=== PATIENT | female | born 1995 | race Caucasian/White ===

== ENCOUNTER 2018-01-25 13:50 | Emergency (ER) | payer BC, MEDICAID ==
[2018-01-25 14:23] LABS: Bilirubin Negative (Negative); Blood, Urine Negative (Negative); Clarity CLEAR (Clear); Glucose, Urine (Dipstick) Negative (Negative); Leukocyte Negative (Negative); Nitrite Negative (Negative); Protein, Urine (Dipstick) Negative (Neg-Trace); Urobilinogen 0.2 mg/dL (0.2-1.0); pH, Urine 6.5 (5.0-9.0)
[2018-01-25 14:24] LABS: Specific Gravity, Urine 1.003 (1.002-1.036)
[2018-01-25 14:25] LABS: Pregnancy Test - Urine (BHCG) Negative (Negative); Pregu Control Background? CLEAR/WHITE (CLR/WHITE); Pregu Control Bar Appear? YES (CONTROL BAR); Specific Gravity 1.003 (1.002-1.036)
== END 2018-01-25 15:05 | disposition home or self-care (01) ==
LOC: ERS 13:50
DX: N61.0 Mastitis without abscess (principal); F32.9 Major depressive disorder, single episode, unspecified
CPT/HCPCS: 81003; 81025; 99283

== ENCOUNTER 2019-09-20 19:07 | Emergency (ER) | payer MEDICAID, SELFPAY ==
[2019-09-20 19:52] LABS: #Basophils 0.1 thou/uL (0.0-0.2); #Monocytes 1.1 thou/uL (0.11-0.59); #Neutrophils 7.2 thou/uL (1.40-6.50); %Basophils 0.6 % (0.0-1.0); %Eosinophils 0.2 % (0.0-10.0); %Lymphocytes 19.2 % (21.0-51.0); %Monocytes 10.7 % (0.0-10.0); %Neutrophils 69.4 % (42.0-75.0); Mean Corpuscular HGB CONC 34.6 g/dL (32.0-36.0); Mean Corpuscular Hemoglobin 32.2 pg (27.0-31.0); Mean Platelet Volume 7.8 fL (7.4-10.4); Platelet Count 271 thou/uL (130-400); RBC Distribution Width 11.5 % (11.5-14.5); Red Blood Cell (RBC) Count 4.33 mill/uL (4.20-5.40); White Blood Cell (WBC) Count 10.4 thou/uL (4.8-10.8)
[2019-09-20 20:13] LABS: ALT (SGPT) 21 U/L (8-55); AST (SGOT) 14 U/L (5-34); Albumin 4.4 g/dL (3.5-5.0); Alkaline Phosphatase 78 U/L (40-110); Anion Gap 13 mmol/L (10-20); BUN (Urea Nitrogen) 10 mg/dL (7.0-18.7); Bilirubin, Total 0.4 mg/dL (0.2-1.2); Calc. Creatinine Clearance 0 mL/min (70-130); Carbon Dioxide 23 mmol/L (22-29); Chloride 106 mmol/L (98-107); Estimated GFR-MDRD 80; Globulin 3.1 g/dL (2.4-3.5); Glucose 105 mg/dL (70-105); Potassium 3.5 mmol/L (3.5-5.1); Protein, Total 7.5 g/dL (6.0-8.3); Sodium 138 mmol/L (136-145)
== END 2019-09-20 20:27 | disposition home or self-care (01) ==
LOC: ERS 19:07
DX: L02.414 Cutaneous abscess of left upper limb (principal); L03.114 Cellulitis of left upper limb; F32.9 Major depressive disorder, single episode, unspecified; Z79.899 Other long term (current) drug therapy
CPT/HCPCS: 10060; 36415; 80053; 85025

== ENCOUNTER 2019-09-21 20:54 | Emergency (ER) | payer MEDICAID ==
[2019-09-21 21:18] LABS: #Basophils 0.1 thou/uL (0.0-0.2); #Eosinphils 0.1 thou/uL (0.0-0.7); #Lymphocytes 2.6 thou/uL (1.20-3.40); #Monocytes 0.9 thou/uL (0.11-0.59); #Neutrophils 3.5 thou/uL (1.40-6.50); %Basophils 1.2 % (0.0-1.0); %Eosinophils 1.3 % (0.0-10.0); %Lymphocytes 36.3 % (21.0-51.0); %Monocytes 12.9 % (0.0-10.0); %Neutrophils 48.4 % (42.0-75.0); Hemoglobin 13.7 g/dL (12.0-16.0); Mean Corpuscular HGB CONC 32.8 g/dL (32.0-36.0); Mean Corpuscular Hemoglobin 30.6 pg (27.0-31.0); Mean Corpuscular Volume 93.4 fL (78.0-98.0); Mean Platelet Volume 7.8 fL (7.4-10.4); Platelet Count 291 thou/uL (130-400); RBC Distribution Width 11.5 % (11.5-14.5); Red Blood Cell (RBC) Count 4.48 mill/uL (4.20-5.40); White Blood Cell (WBC) Count 7.3 thou/uL (4.8-10.8)
[2019-09-21] MEDS ORDERED: Lidocaine 1% PF 5 ML VIAL ONE (23:56)
[2019-09-21] MEDS ORDERED: cefTRIAXone\\ROCEPHIN 1 GM VIAL ONE (23:56)
== END 2019-09-22 00:39 | disposition home or self-care (01) ==
LOC: ERS 20:54
DX: L03.114 Cellulitis of left upper limb (principal); F32.9 Major depressive disorder, single episode, unspecified; Z79.899 Other long term (current) drug therapy
CPT/HCPCS: 36415; 85025; 96372; 99283; J0696; J2001

== ENCOUNTER 2019-09-25 13:25 | Inpatient (IN) | payer MEDICAID, SELFPAY ==
[2019-09-25 13:59] LABS: #Basophils 0.1 thou/uL (0.0-0.2); #Eosinphils 0.1 thou/uL (0.0-0.7); #Lymphocytes 2.4 thou/uL (1.20-3.40); #Monocytes 0.5 thou/uL (0.11-0.59); %Basophils 0.9 % (0.0-1.0); %Lymphocytes 34.4 % (21.0-51.0); %Neutrophils 56.7 % (42.0-75.0); Hemoglobin 14.5 g/dL (12.0-16.0); Mean Corpuscular HGB CONC 34.3 g/dL (32.0-36.0); Mean Corpuscular Volume 93.2 fL (78.0-98.0); Mean Platelet Volume 7.5 fL (7.4-10.4); Platelet Count 349 thou/uL (130-400); RBC Distribution Width 11.5 % (11.5-14.5); Red Blood Cell (RBC) Count 4.52 mill/uL (4.20-5.40); White Blood Cell (WBC) Count 7.1 thou/uL (4.8-10.8)
[2019-09-25 14:20] LABS: ALT (SGPT) 27 U/L (8-55); AST (SGOT) 17 U/L (5-34); Albumin 4.8 g/dL (3.5-5.0); Alkaline Phosphatase 75 U/L (40-110); Anion Gap 13 mmol/L (10-20); BUN (Urea Nitrogen) 14 mg/dL (7.0-18.7); Bilirubin, Total 0.3 mg/dL (0.2-1.2); Calc. Creatinine Clearance 0 mL/min (70-130); Calcium 9.3 mg/dL (7.8-10.44); Carbon Dioxide 24 mmol/L (22-29); Chloride 106 mmol/L (98-107); Estimated GFR-MDRD 80; Globulin 3.4 g/dL (2.4-3.5); Glucose 72 mg/dL (70-105); Potassium 4.1 mmol/L (3.5-5.1); Protein, Total 8.2 g/dL (6.0-8.3); Sodium 139 mmol/L (136-145)
[2019-09-25] MEDS ORDERED: HYDROcodone/Acetaminophen 5/325 mg Tablet PO PRN (17:23)
[2019-09-25] MEDS ORDERED: Bisacodyl 10 MG SUPP PR PRN (17:23)
[2019-09-25] MEDS ORDERED: Senokot S 8.6-50 MG TAB PO PRN (17:23)
[2019-09-25] MEDS ORDERED: Ondansetron PF 4 MG/2 ML Vial IVP PRN (17:23)
--- NOTE | 2019-09-25 19:37 | HP ---
REASON FOR ADMISSION: Left forearm cellulitis, likely community-acquired Staph infection. HISTORY OF PRESENTING ILLNESS: The patient gives history of having a small pimple more than a week back. This finally opened up and purulent material was drained out. She also was dressing it with hydrogen peroxide and applying Neosporin. 24 hours after the abscess opened up a week back, the patient developed a fever of 102.6 degrees with chills and generalized weakness. She initially thought she had flu. She finally made it to emergency room on . She had a repeat incision and drainage done in the emergency room and was given prescriptions for Bactrim and Keflex. Her skin was marked and the patient was asked to come to the ER if the area of erythema increases. So, she came back on Tuesday to the ER and was given a dose of IV Rocephin. She was asked to continue the same antibiotics. The patient went to see Dr. Matos yesterday and the skin marking had in fact become even bigger and she was asked to take Bactrim Double Strength two tablets in the morning and evening along with Keflex. She also finally called Dr. Cain this morning as the patient reported that her erythema skin markings were getting enlarged and it was becoming painful. Finally, the patient presented here and is being hospitalized. PAST MEDICAL AND SURGICAL HISTORY: Tonsillectomy, depression. CURRENT MEDICATIONS: Zoloft 100 mg p.o. daily. ALLERGIES: ALLERGIC TO CODEINE. PERSONAL HISTORY: Does not abuse alcohol or drugs. No history of smoking. She has a 4-month-old and is not breast-feeding him. FAMILY HISTORY: Mother has history of CVA and hypertension. Father has history of diabetes. Both parents are living. CODE STATUS: Full. REVIEW OF SYSTEMS: CONSTITUTIONAL: Negative for weight loss or gain, ability to conduct usual activities. SKIN: Negative for rash, itching. EYES: Negative for double vision, pain. ENT/MOUTH: Negative for nose bleeding, neck stiffness, pain, tenderness. CARDIOVASCULAR: Negative for palpitations, dyspnea on exertion, orthopnea. RESPIRATORY: Negative for shortness of breath, wheezing, cough, hemoptysis, fever or night sweats. GASTROINTESTINAL: Negative for poor appetite, abdominal pain, heartburn, nausea, vomiting, constipation, or diarrhea. GENITOURINARY: Negative for urgency, frequency, dysuria, nocturia. MUSCULOSKELETAL: Negative for pain, swelling. NEUROLOGIC/PSYCHIATRIC: Negative for anxiety, depression. ALLERGY/IMMUNOLOGIC: Negative for skin rash, bleeding tendency. PHYSICAL EXAMINATION: GENERAL: The patient is a 23-year-old female who is currently not in any acute distress. VITAL SIGNS: Blood pressure 130/60, pulse 100 per minute, respiratory rate 18 per minute, temperature 98.4 degrees Fahrenheit, and saturating 97% on room air. NECK: Supple. No elevated JVD. HEENT: Eyes, extraocular muscles intact. Pupils reacting to light. Oral cavity, mucous membranes are moist. No exudates or congestion. CARDIOVASCULAR: S1, S2 heard. Regular rhythm. RESPIRATORY: Air entry 2+ bilateral. No rales or rhonchi. ABDOMEN: Soft bowel sounds heard. No tenderness, rigidity, or guarding. EXTREMITIES: The patient has 2 small wounds measuring 0.5 x 0.5 cm in the cubital foci on the left side. Both abscesses have opened up and they are essentially crusting at present. She has erythema extending down into the forearm measuring 8 cm in length and 6 cm in breath. This is not tender to touch and no fluctuation felt. Lower extremities no peripheral edema or calf tenderness. VASCULAR SYSTEM: Peripheral pulses 2+ bilateral. No ischemic ulcerations or gangrene. CENTRAL NERVOUS SYSTEM: No gross focal deficits noted. The patient is alert, awake, oriented well. PSYCHIATRIC: The patient's mood is euthymic. No hallucinations or delusions. LABORATORY DATA: White count of 7, H and H 14 and 42, platelet count 349, MCV is 93 with 56% neutrophils. Electrolytes are stable. BUN 14, creatinine 0.8, glucose 72. Liver enzymes within normal limits. Albumin is 4.8. CLINICAL IMPRESSION AND PLAN: The patient will be admitted to medical floor for left forearm cellulitis with two abscesses, likely methicillin-resistant staphylococcus aureus community-acquired skin infection. She has failed outpatient antibiotic treatment and will be placed on vancomycin and ceftriaxone here. Likely, the patient will stay for 2 days to see for receding of the erythema margins. She has had progressive enlargement of the erythema area based on skin markings. She will be on [place] p.r.n. for pain. We will continue her Zoloft as before. Please note the patient is not breast-feeding her . She will be on a regular diet. We will continue to closely monitor her on medical floor. Job ID: [id number]
[2019-09-25] MEDS ORDERED: Vancomycin HCl 1 GM in Premix Bag 1 BAG IVPB SCH (21:00)
[2019-09-25] MEDS: cefTRIAXone\\ROCEPHIN 1 GM in Sodium Chloride 0.9% 100 ML IVPB SCH (21:00)
[2019-09-25] MEDS: Famotidine 20 MG TAB PO SCH (21:01)
[2019-09-25] MEDS: Acetaminophen 325 MG TAB PO PRN (21:23)
[2019-09-25 22:32] VITALS: BMI 33.0
[2019-09-26] MEDS: Vancomycin HCl 1.25 GM in Sodium Chloride 0.9% 250 ML 250 ML IVPB SCH ×2 (01:25→13:54)
[2019-09-26] MEDS: Acetaminophen 325 MG TAB PO PRN (01:28)
[2019-09-26 06:45] LABS: #Basophils 0.1 thou/uL (0.0-0.2); #Eosinphils 0.1 thou/uL (0.0-0.7); #Lymphocytes 3.2 thou/uL (1.20-3.40); #Monocytes 0.5 thou/uL (0.11-0.59); #Neutrophils 2.7 thou/uL (1.40-6.50); %Basophils 1.1 % (0.0-1.0); %Eosinophils 1.7 % (0.0-10.0); %Lymphocytes 47.8 % (21.0-51.0); %Monocytes 7.8 % (0.0-10.0); %Neutrophils 41.6 % (42.0-75.0); Hemoglobin 13.1 g/dL (12.0-16.0); Mean Corpuscular HGB CONC 34.1 g/dL (32.0-36.0); Mean Corpuscular Hemoglobin 31.8 pg (27.0-31.0); Mean Corpuscular Volume 93.2 fL (78.0-98.0); Mean Platelet Volume 7.5 fL (7.4-10.4); Platelet Count 300 thou/uL (130-400); RBC Distribution Width 11.5 % (11.5-14.5); Red Blood Cell (RBC) Count 4.11 mill/uL (4.20-5.40); White Blood Cell (WBC) Count 6.6 thou/uL (4.8-10.8)
[2019-09-26 06:52] LABS: Anion Gap 10 mmol/L (10-20); BUN (Urea Nitrogen) 11 mg/dL (7.0-18.7); Calc. Creatinine Clearance 161 mL/min (70-130); Calcium 8.6 mg/dL (7.8-10.44); Carbon Dioxide 22 mmol/L (22-29); Chloride 108 mmol/L (98-107); Estimated GFR-MDRD Greater than 90; Glucose 89 mg/dL (70-105); Potassium 4.1 mmol/L (3.5-5.1); Sodium 136 mmol/L (136-145)
[2019-09-26] MEDS: Famotidine 20 MG TAB PO SCH ×2 (08:36→20:06)
[2019-09-26] MEDS: Enoxaparin Sodium 40 MG/0.4 ML SYRINGE SC SCH (08:37)
--- NOTE | 2019-09-26 13:31 | PDOC.HOSPP ---
- Subjective Encounter Date: 09/26/19 Encounter Time: 08:45 Subjective: left forearm swelling and pain is less this am - Objective Vital Signs & Weight: Vital Signs (12 hours) Temp Pulse Resp BP Pulse Ox 09/26/19 11:49 98.4 F 69 20 110/70 98 09/26/19 08:00 98.0 F 79 20 123/74 98 09/26/19 04:33 98 F 66 18 108/67 97 Weight Weight 198 lb 6.656 oz I&O: 09/25/19 09/26/19 09/27/19 06:59 06:59 06:59 Intake Total 350 Balance 350 Result Diagrams: 09/26/19 06:10 09/26/19 06:10 Hospitalist ROS - Medication Medications: Active Medications Generic Name Dose Route Start Last Admin Trade Name Freq PRN Reason Stop Dose Admin Acetaminophen 650 mg 09/25/19 17:23 09/26/19 01:28 Tylenol PO 650 mg Q4H PRN Administration Headache/Fever/Mild Pain (1-3) Enoxaparin Sodium 40 mg 09/26/19 09:00 09/26/19 08:37 Lovenox SC 40 mg 0900 RASHAUN Administration Famotidine 20 mg 09/25/19 21:00 09/26/19 08:36 Pepcid PO 20 mg BID RASHAUN Administration Ceftriaxone Sodium 1 gm/ 100 mls @ 200 mls/hr 09/25/19 18:00 09/25/19 21:00 Sodium Chloride IVPB 100 mls Q24HR RASHAUN Administration Vancomycin HCl 1.25 gm/ Sodium 250 mls @ 166.667 mls/hr 09/26/19 02:00 01:25 Chloride IVPB 250 mls 0200,1400 RASHAUN Administration - Exam General Appearance: awake alert Eye: PERRL, anicteric sclera ENT: no oropharyngeal lesions, moist mucosa Neck: supple, no JVD Heart: RRR, no murmur Respiratory: no wheezes, no rales Gastrointestinal: soft, non-tender, non-distended, normal bowel sounds Extremities: no edema Extremities - other findings: left forearm erythema is receding Neurological: cranial nerve grossly intact, no focal deficits Psychiatric: normal affect, A&O x 3 Hosp A/P (1) Cellulitis of left forearm Code(s): L03.114 - CELLULITIS OF LEFT UPPER LIMB Status: Acute (2) Obesity (BMI 30.0-34.9) Code(s): E66.9 - OBESITY, UNSPECIFIED Status: Chronic (3) Depression Code(s): F32.9 - MAJOR DEPRESSIVE DISORDER, SINGLE EPISODE, UNSPECIFIED Status : Chronic Qualifiers: Depression Type: unspecified Qualified Code(s): F32.9 - Major depressive disorder, single episode, unspecified - Plan is on vanc and ceftriaxone failed outpt antibiotics (keflex and bactrim ds) dc plan in am hemostable
[2019-09-26] MEDS: cefTRIAXone\\ROCEPHIN 1 GM in Sodium Chloride 0.9% 100 ML IVPB SCH (17:14)
[2019-09-27 01:12] LABS: Vancomycin, Trough 7.4 ug/mL
[2019-09-27] MEDS ORDERED: Vancomycin HCl 1.25 GM in Sodium Chloride 0.9% 250 ML 250 ML IVPB SCH (02:00)
[2019-09-27] MEDS: Famotidine 20 MG TAB PO SCH (09:34)
[2019-09-27] MEDS: Enoxaparin Sodium 40 MG/0.4 ML SYRINGE SC SCH (09:54)
[2019-09-27 10:03] VITALS: BP 127/77; TEMP 98.2
--- NOTE | 2019-09-27 14:54 | DIS ---
DATE OF ADMISSION: 09/25/2019 DATE OF DISCHARGE: 09/27/2019 DISCHARGE DISPOSITION: To home. PRIMARY DISCHARGE DIAGNOSIS: Left forearm cellulitis with 2 prior abscesses, which had incision and drainage, likely from methicillin-resistant Staphylococcus aureus, community-acquired. SECONDARY DISCHARGE DIAGNOSES: 1. Obesity. 2. Depression. PROCEDURES DONE DURING HOSPITALIZATION: Blood cultures x2, no growth. White count of 6, H and H of 13 and 38, platelet count 300 with 41% neutrophils, 47% lymphocytes, and MCV is 93. BUN 11, creatinine 0.7, and albumin is 4.8. DISCHARGE MEDICATIONS: 1. Doxycycline 100 mg p.o. twice daily for 8 days. 2. Rifampin 300 mg p.o. twice daily for 8 days. 3. Zoloft 100 mg p.o. at bedtime. ALLERGIES: TO HYDROCODONE AND CODEINE. DISCHARGE PLAN: The patient to follow up with her primary care physician, Dr. Matos, in 1 week. BRIEF COURSE DURING HOSPITALIZATION: The patient initially came to ER with complaints of redness over the left forearm from her elbow with 2 small abscesses for which she has had prior incision and drainage. The patient has had progressive swelling and enlargement of her erythema. She failed outpatient antibiotics of Bactrim and ciprofloxacin. She had nearly 2 ER visits and 2 primary care physician visits prior to hospitalization. In view of this, the patient was placed on vancomycin and ceftriaxone. She has responded well to above measures. Her erythema is almost resolved. In view of prior failed Bactrim and Cipro, the patient was placed on rifampin and doxycycline. She has an intrauterine device for prevention and the patient is not lactating her 4-month-old . She is hemodynamically stable and will be shortly discharged home. Job ID: [id number]
== END 2019-09-27 10:57 | disposition home or self-care (01) | DRG 603 ==
LOC: ERS 13:25 → ERHOLD 15:42 → T4-B 20:29
PROVIDERS: ADMIT Emergency Medicine; ATTEND Internal Medicine
DX: L03.114 Cellulitis of left upper limb (principal); F32.9 Major depressive disorder, single episode, unspecified; E66.9 Obesity, unspecified; Z68.33 Body mass index [BMI] 33.0-33.9, adult; Z88.5 Allergy status to narcotic agent; B95.62 Methicillin resistant Staphylococcus aureus infection as the cause of diseases classified elsewhere; R40.2412 Glasgow coma scale score 13-15, at arrival to emergency department; Z82.3 Family history of stroke; Z82.49 Family history of ischemic heart disease and other diseases of the circulatory system; Z83.3 Family history of diabetes mellitus
CPT/HCPCS: 36415; 80048; 80053; 80202; 83605; 85025; 87040; 96365; 96366; J0696; J1650; J2405; J3370; J3490; J7050